=== PATIENT | male | born 1980 | race Caucasian/White ===

== ENCOUNTER 2021-02-01 14:48 | Emergency (ER) | payer SELFPAY ==
[~2021-02-01] VITALS: Ht 188 cm; Wt 152.3 kg
--- NOTE | 2021-02-01 15:29 | NUR ---
first contact with pt. pt c/o lower back pain radiating to rle. pt denies any other symptoms. pt's aox4. resps even and unlabored. bp/spo2 monitors in place. call light within reach. edmd at bedside for evaluation.
[2021-02-01] MEDS ORDERED: METHOCARBAMOL 750 MG TABLET PO ONE (15:30)
[2021-02-01] MEDS ORDERED: HYDROmorphone 1 MG/ML, 1ML INJ IM ONE (15:30)
[2021-02-01] MEDS ORDERED: HYDROmorphone 1 MG/ML, 1ML INJ ONE (15:45)
[2021-02-01] MEDS ORDERED: METHOCARBAMOL 750 MG TABLET ONE (15:45)
--- NOTE | 2021-02-01 15:53 | NUR ---
pt medicated per emar. pt tolerated well.
[2021-02-01 15:58] LABS: ALANINE AMINOTRANSFERASE 64 U/L (12-78); ALBUMIN 3.7 g/dL (3.4-5.0); ANION GAP 6 mmol/L (5-15); CALCIUM 9.1 mg/dL (8.5-10.1); CHLORIDE 109 mmol/L (98-107); CREATININE 1.08 mg/dL (0.7-1.3)
[2021-02-01 16:01] LABS: ALKALINE PHOSPHATASE 45 U/L (45-117); BILIRUBIN,TOTAL 0.4 mg/dL (0.2-1.0); TOTAL PROTEIN 7.4 g/dL (6.4-8.2)
--- NOTE | 2021-02-01 16:56 | NUR ---
pt wheeled to br with this rn.
--- NOTE | 2021-02-01 17:03 | NUR ---
edmd at bedside to explain all results at this time.
[2021-02-01 17:34] VITALS: BP 140/82
--- NOTE | 2021-02-01 17:35 | NUR ---
Patient given discharge instructions and they have confirmed that they understand the instructions.
== END 2021-02-01 17:36 | disposition home or self-care (01) ==
LOC: ED 17:30
DX: M54.41 Lumbago with sciatica, right side (principal)
CPT/HCPCS: 36415; 72131; 80053; 80143; 96372; 99284; J1170